=== PATIENT | female | born 1985 | race Caucasian/White ===

== ENCOUNTER 2018-02-24 10:45 | Inpatient (IN) | payer MEDICAID ==
[2018-02-24] MEDS ORDERED: AMPICILLIN 2 GM/NS (PMX) 100 ML (10:58)
[2018-02-24] MEDS: LIDOCAINE 0.5% (SDV) 50 ML INJ INFIL (11:00)
[2018-02-24] MEDS ORDERED: CARBOPROST 250 MCG INJ IM ×2 (11:00→14:30)
[2018-02-24] MEDS ORDERED: BUTORPHANOL 2 MG INJ IV (11:00)
[2018-02-24] MEDS ORDERED: MISOPROSTOL 200 MCG TAB PR ×2 (11:00→14:30)
[2018-02-24] MEDS ORDERED: OXYTOCIN 30 UNITS/LR 500 ML IV ×4 (11:00→14:30)
[2018-02-24] MEDS ORDERED: METHYLERGONOVINE 0.2 MG INJ IM ×2 (11:00→14:30)
[2018-02-24 11:16] LABS: ADD MAN DIFF? NO
[2018-02-24 11:19] LABS: BASOPHILS % 0.3 % (0.0-2.0); EOSINOPHILS % 0.3 % (0.0-7.0); HEMATOCRIT 40.9 % (37.0-47.0); LYMPHOCYTES # 2.1 10^3/ul (0.8-2.9); LYMPHOCYTES % 25.9 % (15.0-51.0); MEAN CORPUSCULAR HGB CONC 34.2 g/dl (32.0-37.0); MEAN CORPUSCULAR VOLUME 81.8 fl (82.0-101.0); MONOCYTE # 0.4 10^3/ul (0.3-0.9); MONOCYTES % 5.5 % (0.0-11.0); NEUTROPHIL # 5.4 10^3/ul (1.6-7.5); NEUTROPHILS % 67.4 % (39.0-77.0); PLATELET COUNT 279 10^3/UL (140-415); RED CELL DISTRIBUTION WIDTH 14.8 % (11.5-14.5)
[2018-02-24] MEDS: LACTATED RINGER'S 1,000 ML IV* ×2 (11:30→14:02)
[2018-02-24] MEDS: AMPICILLIN 2 GM/NS (PMX) 100 ML IV (11:30)
[2018-02-24 11:39] LABS: INR 0.78; PROTIME 10.9 Sec (11.9-14.9); PT RATIO 0.9
[2018-02-24 11:40] LABS: PARTIAL THROMBOPLASTIN TIME 25.8 Sec (23.0-35.0)
[2018-02-24 12:10] LABS: HEPATITIS B SURFACE ANTIGEN NEGATIVE (NEGATIVE)
[2018-02-24] MEDS: IBUPROFEN 600 MG TAB PO ×2 (12:24→17:17)
[2018-02-24] MEDS: OXYTOCIN 30 UNITS/LR 500 ML IV (13:03)
[2018-02-24] MEDS ORDERED: DIBUCAINE 1% 30 GM OINT TOP (14:30)
[2018-02-24] MEDS ORDERED: ACETAMINOPHEN 325 MG TAB PO (14:30)
[2018-02-24] MEDS ORDERED: HYDROCODONE/APAP (5/325) TAB PO (14:30)
[2018-02-24] MEDS ORDERED: AMPICILLIN 1 GM/NS (PMX) 50 ML IV (15:00)
[2018-02-24] MEDS: WITCH HAZEL/GLYCERIN PAD PR (21:12)
[2018-02-24] MEDS: SENNA/DOCUSATE NA (8.6MG/50MG) TAB PO (21:12)
[2018-02-24] MEDS: BENZOCAINE 20% 56 ML SPRAY TOP (21:13)
[2018-02-24] MEDS: LANOLIN 7 GM TUBE TOP (21:13)
[2018-02-24 22:55] LABS: RAPID PLASMA REAGIN NONREACTIVE (NR)
[2018-02-25] MEDS: IBUPROFEN 600 MG TAB PO ×4 (00:18→17:27)
[2018-02-25 07:53] LABS: ADD MAN DIFF? NO
[2018-02-25 07:59] LABS: BASOPHILS % 0.4 % (0.0-2.0); EOSINOPHILS % 0.5 % (0.0-7.0); HEMATOCRIT 35.8 % (37.0-47.0); HEMOGLOBIN 12.2 g/dl (12.0-16.0); LYMPHOCYTES # 2.2 10^3/ul (0.8-2.9); LYMPHOCYTES % 26.9 % (15.0-51.0); MEAN CORPUSCULAR HEMOGLOBIN 28.4 pg (29.0-33.0); MEAN CORPUSCULAR HGB CONC 34.1 g/dl (32.0-37.0); MEAN CORPUSCULAR VOLUME 83.3 fl (82.0-101.0); MEAN PLATELET VOLUME 10.1 fl (7.4-10.4); MONOCYTE # 0.7 10^3/ul (0.3-0.9); NEUTROPHIL # 5.3 10^3/ul (1.6-7.5); NEUTROPHILS % 63.8 % (39.0-77.0); PLATELET COUNT 226 10^3/UL (140-415); RED CELL DISTRIBUTION WIDTH 15.3 % (11.5-14.5)
[2018-02-25 07:59] LABS: WHITE BLOOD COUNT 8.3 10^3/ul (4.8-10.8)
[2018-02-25] MEDS: SENNA/DOCUSATE NA (8.6MG/50MG) TAB PO ×2 (09:00→21:36)
[2018-02-26] MEDS: IBUPROFEN 600 MG TAB PO ×3 (00:06→11:30)
[2018-02-26] MEDS: LANOLIN 7 GM TUBE TOP (00:07)
[2018-02-26] MEDS: SENNA/DOCUSATE NA (8.6MG/50MG) TAB PO (08:34)
[2018-02-26] MEDS: DIPHTH/TET/ACEL PERTUSS (ADULT) 0.5 ML VIAL IM* (08:34)
== END 2018-02-26 14:05 | disposition home or self-care (01) | DRG 807 ==
LOC: L-D 10:45 → PP1 13:55
PROVIDERS: Obstetrics & Gynecology
PROC: 10E0XZZ Delivery of Products of Conception, External Approach (ICD-10-PCS; principal; 2018-02-24 17:00)
PROC: 0HQ9XZZ Repair Perineum Skin, External Approach (ICD-10-PCS; 2018-02-24 17:00)
PROC: 3E033VJ Introduction of Other Hormone into Peripheral Vein, Percutaneous Approach (ICD-10-PCS; 2018-02-24 17:00)
DX: O70.0 First degree perineal laceration during delivery (principal); Z37.0 Single live birth; O69.81X0 Labor and delivery complicated by cord around neck, without compression, not applicable or unspecified; Z3A.39 39 weeks gestation of pregnancy
CPT/HCPCS: 85025; 85610; 85730; 86592; 86850; 86900; 86901; 87340; 88307; 90715; 99464